=== PATIENT | female | born 1980 | race Caucasian/White ===

== ENCOUNTER 2023-08-07 09:23 | Day surgery (SDC) | payer OTHER ==
[~2023-08-07] VITALS: Ht 170.2 cm; Wt 78.0 kg
[2023-08-07 10:13] LABS: HCG,QUAL RESULT NEGATIVE (NEGATIVE)
[2023-08-07 10:23] LABS: BARBITURATE, URINE NEGATIVE (NEG <=200); BENZODIAZEPINE, URINE NEGATIVE (NEG <=150); CANNABINOID, URINE POSITIVE (NEG <=50); COCAINE, URINE NEGATIVE (NEG <=150); METHAMPHETAMINES SCREEN,URINE POSITIVE (NEG <=500); URINE AMPHETAMINE POSITIVE (NEG <=500); URINE METHADONE NEGATIVE (NEG <=200)
[2023-08-07 10:24] LABS: OPIATE, URINE NEGATIVE (NEG <=100); PHENCYCLIDINE SCREEN,URINE NEGATIVE (NEG <=25); UR TRICYCLIC ANTIDEPRESSANTS NEGATIVE (NEG <=300); URINE OXYCODONE SCREEN NEGATIVE (NEG <=100)
[2023-08-07 10:54] LABS: HEMATOCRIT 29.7 % (36-48); HEMOGLOBIN 8.9 g/dL (12.0-16.0); MEAN CORPUSCULAR HEMOGLOBIN 18 pg (27-31); MEAN CORPUSCULAR HGB CONC 30 % (32-36); MEAN CORPUSCULAR VOLUME 60 fL (79.0-98.0); PLATELET COUNT (AUTO) 306 K/uL (130-430); RED BLOOD CELL COUNT(AUTO) 4.94 MIL/uL (4.2-6.2); RED CELL DISTRIBUTION WIDTH 22.6 % (9.0-15.0); WHITE BLOOD COUNT (AUTO) 5.1 K/uL (4.8-10.8)
[2023-08-07 11:28] LABS: BASOPHILS % (MANUAL) 0 % (0-2); EOSINOPHILS % (MANUAL) 6 % (0-7); LYMPHOCYTES % (MANUAL) 35 % (20-46); MONOCYTES % (MANUAL) 11 % (0-11)
[2023-08-07 11:29] LABS: ANISOCYTOSIS 2+; HYPOCHROMASIA 2+; OVALOCYTES MODERATE; PLATELET ESTIMATE ADEQUATE (ADEQUATE); STOMATOCYTES RARE; TARGET CELLS FEW
[2023-08-07] MEDS ORDERED: ONDANSETRON HCL 4 MG/2 ML VIAL ONE (12:08)
[2023-08-07] MEDS ORDERED: PROPOFOL 200MG/ 20ML VIAL (DIPRIVAN) IV ONE (12:08)
[2023-08-07] MEDS ORDERED: SEVOFLURANE 15 MIN GAS INH ONE (12:08)
[2023-08-07] MEDS ORDERED: NS 1000 ML IV.SOLN IV ONE (12:08)
[2023-08-07] MEDS ORDERED: KETOROLAC TROMETHAMINE 30 MG VIAL ONE (12:08)
[2023-08-07] MEDS ORDERED: fentaNYL CITRATE/PF 100 MCG/2 ML AMP ONE (12:08)
[2023-08-07] MEDS ORDERED: WATER FOR IRRIGATION,STERILE 1,000 ML IRRIG.SOLN IR ONE (12:08)
[2023-08-07] MEDS ORDERED: MIDAZOLAM HCL/PF 2 MG/2 ML SYRINGE ONE (12:08)
[2023-08-07 12:10] VITALS: O2SAT 100
[2023-08-07] MEDS ORDERED: KETOROLAC TROMETHAMINE 30 MG VIAL IVP PRN (12:45)
[2023-08-07] MEDS ORDERED: METOCLOPRAMIDE HCL 10 MG/2 ML VIAL IVP PRN (12:45)
[2023-08-07] MEDS ORDERED: HYDROmorphone 1 MG/ML INJ. CARTRIDGE IVP PRN (12:45)
[2023-08-07] MEDS ORDERED: IBUPROFEN 800 MG TABLET PO PRN (12:45)
[2023-08-07] MEDS ORDERED: ONDANSETRON HCL 4 MG/2 ML VIAL IVP PRN (12:45)
[2023-08-07 17:50] VITALS: BP_SYST 140; PULSE 85; RESP 20
== END 2023-08-07 15:29 | disposition home or self-care (01) ==
LOC: SDS 09:23 → SMU 09:24 → SDS 15:29
PROVIDERS: ATTEND Obstetrics & Gynecology
DX: N92.0 Excessive and frequent menstruation with regular cycle (principal); I10 Essential (primary) hypertension; E78.5 Hyperlipidemia, unspecified; I25.2 Old myocardial infarction; Z98.890 Other specified postprocedural states
CPT/HCPCS: 87081; 58563; 85027; 80307; 84703; 85007; 36415; 71045; J1885; J3465; J2405; J2704; J3010; J7030